=== PATIENT | female | born 1960 | race Caucasian/White ===

== ENCOUNTER 2020-10-25 06:36 | Day surgery (SDC) | payer OTHER ==
[~2020-10-25] VITALS: Ht 147.3 cm; Wt 56.7 kg
[2020-10-25] MEDS ORDERED: LIDOCAINE 2% 100 MG/5 ML UJET TP ONE (08:06)
[2020-10-25] MEDS ORDERED: fentaNYL citrate 0.05 MG/ML VIAL ONE (08:06)
[2020-10-25] MEDS ORDERED: fentaNYL citrate 0.05 MG/ML VIAL IVP ONE (08:50)
== END 2020-10-25 09:08 | disposition home or self-care (01) ==
LOC: MDS 06:36 → MMU 06:58 → MDS 09:08
PROVIDERS: ATTEND Internal Medicine Gastroenterology
DX: Z12.11 Encounter for screening for malignant neoplasm of colon (principal); I10 Essential (primary) hypertension; E78.00 Pure hypercholesterolemia, unspecified; E11.9 Type 2 diabetes mellitus without complications; Z79.4 Long term (current) use of insulin; Z79.899 Other long term (current) drug therapy
CPT/HCPCS: 45378; 82272; J3010